=== PATIENT | female | born 1950 | race African-American/Black ===

== ENCOUNTER 2018-06-26 12:34 | Observation (INO) | payer OTHER ==
[~2018-06-26] VITALS: Ht 170.2 cm; Wt 60.1 kg
[2018-06-26 14:39] LABS: BASOPHIL (%) 0.5 % (0-1); BASOPHIL COUNT 0.1 K/uL (0-0.1); EOSINOPHIL (%) 1.7 % (0-5); EOSINOPHIL COUNT 0.2 K/uL (0-0.3); HEMATOCRIT 33.5 % (36.0-46.0); HEMOGLOBIN 10.9 G/DL (11.9-15.5); IMMATURE GRANULOCYTE (%) 0.7 % (0.0-0.7); LYMPHOCYTE (%) 22.7 % (15-42); MCH 30.4 PG (29.0-34.0); MCHC 32.5 G/DL (30.0-36.0); MCV 93.3 FL (83-99); MONOCYTE (%) 13.1 % (3-12); MONOCYTE COUNT 1.7 K/uL (0-0.8); NEUTROPHIL (%) 61.3 % (45-76); PLATELET COUNT 327 K/uL (156-360); RBC DIS.WIDTH-CV 15.7 % (11.8-14.6); RBC DIS.WIDTH-SD 53.4 % (39-53); RED BLOOD COUNT 3.59 M/uL (3.80-5.20); WHITE BLOOD COUNT 13.1 K/uL (4.1-10.2)
[2018-06-26 14:54] LABS: CHLORIDE 95 mEq/L (99-109); POTASSIUM 4.3 mEq/L (3.7-5.4); SODIUM 139 mEq/L (136-147)
[2018-06-26 14:56] LABS: GLUCOSE 121 mg/dL (70-99)
[2018-06-26 15:00] LABS: CREATININE 9.3 mg/dL (0.6-1.3)
[2018-06-26 15:01] LABS: UREA NITROGEN (BUN) 36 mg/dL (9-23)
[2018-06-26 15:03] LABS: TROP-I INTERPRETATION NEGATIVE; TROPONIN-I 0.02 ng/mL (0.0-0.30)
[2018-06-26 15:05] LABS: GFR ESTIMATE (CALCULATED) 4 mL/min/
[2018-06-26] MEDS ORDERED: DESYREL100 MG PO (18:52)
[2018-06-26] MEDS ORDERED: ATAZANAVIR SUL300 MG PO (18:54)
[2018-06-26] MEDS ORDERED: FERRIC CITRATE210 MG PO ×2 (18:54)
[2018-06-26] MEDS ORDERED: RENA-VITE RX T1 EACH PO (18:54)
[2018-06-26] MEDS ORDERED: ADULT ASPIRIN81 MG PO (18:55)
[2018-06-26] MEDS ORDERED: PLAVIX75 MG PO (18:55)
[2018-06-26] MEDS ORDERED: NORVASC5 MG PO (18:55)
[2018-06-26] MEDS ORDERED: HYDROCODON-ACE1 EAC9 PO (18:55)
[2018-06-26] MEDS ORDERED: NEURONTIN100 MG PO (18:55)
[2018-06-26 20:30] VITALS: BP 131/82
[2018-06-26 23:10] LABS: ALBUMIN 3.4 g/dL (3.2-4.8)
[2018-06-26 23:12] LABS: TOTAL PROTEIN 8.5 g/dL (6.4-8.3)
[2018-06-26 23:14] LABS: TOTAL BILIRUBIN 0.4 mg/dL (0.0-1.0)
[2018-06-26 23:15] LABS: ALKALINE PHOSPHATASE 73 IU/L (3-129)
[2018-06-26 23:18] LABS: AST (GOT) 18 IU/L (2-34); DIRECT BILIRUBIN 0.2 mg/dL (0.0-0.3)
[2018-06-26 23:23] LABS: ALT (GPT) < 1 IU/L (3-49)
[2018-06-27 00:36] VITALS: BP 110/64
[2018-06-27 04:06] VITALS: BP 110/69
[2018-06-27 05:24] LABS: HEMATOCRIT 30.6 % (36.0-46.0); MCH 30.6 PG (29.0-34.0); MCHC 32.7 G/DL (30.0-36.0); MCV 93.6 FL (83-99); PLATELET COUNT 305 K/uL (156-360); RBC DIS.WIDTH-CV 15.7 % (11.8-14.6); RBC DIS.WIDTH-SD 53.3 % (39-53); RED BLOOD COUNT 3.27 M/uL (3.80-5.20); WHITE BLOOD COUNT 10.8 K/uL (4.1-10.2)
[2018-06-27 05:47] LABS: CHLORIDE 95 MEQ/L (99-109); CREATININE 10.6 MG/DL (0.6-1.3); GFR ESTIMATE (CALCULATED) 5 mL/min/; POTASSIUM 4.6 MEQ/L (3.7-5.4); SODIUM 137 MEQ/L (136-147); UREA NITROGEN (BUN) 48 mg/dL (9-23)
[2018-06-27 05:54] LABS: GLUCOSE 82 mg/dL (70-99)
[2018-06-27 07:20] VITALS: BP 116/70
[2018-06-27 11:08] VITALS: BP 100/58
[2018-06-27 12:54] LABS: HEPATITIS B SURFACE ANTIGEN Nonreactive
[2018-06-27 13:07] LABS: HEPATITIS B SURFACE ANTIBODY REACTIVE; HEPATITIS C ANTIBODY REACTIVE
[2018-06-27 13:25] LABS: ANTI-HEPATITIS B CORE (TOTAL) REACTIVE
[2018-06-27 14:02] LABS: ANTI-HEPATITIS B CORE (IGM) Nonreactive
[2018-06-27 20:04] VITALS: BP 90/65
[2018-06-27 23:34] VITALS: BP 92/52
[2018-06-28 03:41] VITALS: BP 102/68
[2018-06-28 08:07] VITALS: BP 86/59
[2018-06-28 10:44] VITALS: BP 90/52; BP 90/59
[2018-06-28 11:51] VITALS: BP 106/65
[2018-06-28 14:00] LABS: BASOPHIL (%) 0.3 % (0-1); EOSINOPHIL (%) 2.7 % (0-5); EOSINOPHIL COUNT 0.2 K/uL (0-0.3); HEMATOCRIT 30.1 % (36.0-46.0); HEMOGLOBIN 9.8 G/DL (11.9-15.5); IMMATURE GRANULOCYTE (%) 0.8 % (0.0-0.7); LYMPHOCYTE (%) 29.7 % (15-42); LYMPHOCYTE COUNT 2.6 K/uL (1.0-2.8); MCH 30.6 PG (29.0-34.0); MCHC 32.6 G/DL (30.0-36.0); MCV 94.1 FL (83-99); MONOCYTE (%) 14.6 % (3-12); MONOCYTE COUNT 1.3 K/uL (0-0.8); NEUTROPHIL (%) 51.9 % (45-76); NEUTROPHIL COUNT 4.5 K/uL (1.8-6.4); PLATELET COUNT 283 K/uL (156-360); RBC DIS.WIDTH-CV 15.5 % (11.8-14.6); RBC DIS.WIDTH-SD 53.4 % (39-53); WHITE BLOOD COUNT 8.8 K/uL (4.1-10.2)
[2018-06-28 14:35] LABS: CHLORIDE 108 mEq/L (99-109); POTASSIUM 3.5 mEq/L (3.7-5.4); SODIUM 140 mEq/L (136-147)
[2018-06-28 14:37] LABS: GLUCOSE 98 mg/dL (70-99)
[2018-06-28 14:41] LABS: GFR ESTIMATE (CALCULATED) 9 mL/min/; UREA NITROGEN (BUN) 32 mg/dL (9-23)
[2018-06-28 14:46] LABS: CREATININE 6.1 mg/dL (0.6-1.3)
[2018-07-02 09:07] LABS: HCV RNA (LOG IU/mL) 6.16 (())
[2018-07-02 20:13] LABS: CD4/CD8 Ratio 1.21 (0.86-5.00)
== END 2018-06-28 17:34 | disposition home or self-care (01) ==
LOC: EME 12:34 → EDOF 18:18 → 4SOUTH 18:18 → EDOF 18:18 → 4SOUTH 20:05
PROVIDERS: Emergency Medicine; Hospitalist; Internal Medicine Infectious Disease; Internal Medicine Nephrology
PROC: 5A1D70Z Performance of Urinary Filtration, Intermittent, Less than 6 Hours Per Day (ICD-10-PCS; principal; 2018-06-27)
DX: I13.0 Hypertensive heart and chronic kidney disease with heart failure and stage 1 through stage 4 chronic kidney disease, or unspecified chronic kidney disease (principal); N18.6 End stage renal disease; I50.9 Heart failure, unspecified; Z99.2 Dependence on renal dialysis; Z21 Asymptomatic human immunodeficiency virus [HIV] infection status; B18.2 Chronic viral hepatitis C; D63.1 Anemia in chronic kidney disease; R22.32 Localized swelling, mass and lump, left upper limb; J44.9 Chronic obstructive pulmonary disease, unspecified; G89.29 Other chronic pain; F19.11 Other psychoactive substance abuse, in remission; Z90.710 Acquired absence of both cervix and uterus; F17.210 Nicotine dependence, cigarettes, uncomplicated; Z82.49 Family history of ischemic heart disease and other diseases of the circulatory system; F10.21 Alcohol dependence, in remission; I73.9 Peripheral vascular disease, unspecified; Z95.820 Peripheral vascular angioplasty status with implants and grafts; Z79.02 Long term (current) use of antithrombotics/antiplatelets; Z79.82 Long term (current) use of aspirin; Z86.19 Personal history of other infectious and parasitic diseases; Z91.19 Patient's noncompliance with other medical treatment and regimen
CPT/HCPCS: 71046; 80048; 80076; 81003; 81381 90; 84484; 85025; 85027; 86355 90; 86359 90; 86360 90; 86704; 86705; 86706; 86803; 87040; 87340; 87522 90; 87536; 87900 90; 87901 90; 99281; 99285; G0257; G0378; J1644

== ENCOUNTER 2018-07-05 07:36 | Day surgery (SDC) | payer OTHER ==
[~2018-07-05 07:36] MED LIST: ADULT ASPIRIN81 MG PO; ATAZANAVIR SUL300 MG PO; DESYREL100 MG PO; FERRIC CITRATE210 MG PO; HYDROCODON-ACE1 EAC9 PO; NEURONTIN100 MG PO; NORVASC5 MG PO; PLAVIX75 MG PO; RENA-VITE RX T1 EACH PO
== END 2018-07-05 11:05 | disposition home or self-care (01) ==
LOC: CATH 07:36
PROC: 03783ZZ Dilation of Left Brachial Artery, Percutaneous Approach (ICD-10-PCS; principal; 2018-07-05)
PROC: B51W1ZZ Fluoroscopy of Dialysis Shunt/Fistula using Low Osmolar Contrast (ICD-10-PCS; principal; 2018-07-05)
PROC: 057Y3ZZ Dilation of Upper Vein, Percutaneous Approach (ICD-10-PCS; principal; 2018-07-05)
DX: T82.858A Stenosis of other vascular prosthetic devices, implants and grafts, initial encounter (principal); F17.200 Nicotine dependence, unspecified, uncomplicated; I12.0 Hypertensive chronic kidney disease with stage 5 chronic kidney disease or end stage renal disease; N18.6 End stage renal disease; Z99.2 Dependence on renal dialysis; D63.1 Anemia in chronic kidney disease; J44.9 Chronic obstructive pulmonary disease, unspecified; B20 Human immunodeficiency virus [HIV] disease; B19.10 Unspecified viral hepatitis B without hepatic coma; B19.20 Unspecified viral hepatitis C without hepatic coma; E78.5 Hyperlipidemia, unspecified; I25.10 Atherosclerotic heart disease of native coronary artery without angina pectoris; Z90.710 Acquired absence of both cervix and uterus; Z82.49 Family history of ischemic heart disease and other diseases of the circulatory system; Z84.1 Family history of disorders of kidney and ureter; Z83.3 Family history of diabetes mellitus; Z80.49 Family history of malignant neoplasm of other genital organs; Z79.82 Long term (current) use of aspirin; Z79.01 Long term (current) use of anticoagulants; Z79.02 Long term (current) use of antithrombotics/antiplatelets; Y83.2 Surgical operation with anastomosis, bypass or graft as the cause of abnormal reaction of the patient, or of later complication, without mention of misadventure at the time of the procedure
CPT/HCPCS: 87641; C1725; C1769; C1894; J1644; J2250; J3010; S0020

== ENCOUNTER 2018-07-13 19:57 | Emergency (ER) | payer OTHER ==
[~2018-07-13] VITALS: Ht 170.2 cm; Wt 62.2 kg
[2018-07-13 20:48] LABS: BASOPHIL (%) 0.3 % (0-1); EOSINOPHIL (%) 2.5 % (0-5); EOSINOPHIL COUNT 0.4 K/uL (0-0.3); HEMATOCRIT 32.6 % (36.0-46.0); HEMOGLOBIN 11.1 G/DL (11.9-15.5); IMMATURE GRANULOCYTE (%) 1.1 % (0.0-0.7); LYMPHOCYTE (%) 28.7 % (15-42); MCH 31.2 PG (29.0-34.0); MCV 91.6 FL (83-99); MONOCYTE (%) 9.4 % (3-12); MONOCYTE COUNT 1.3 K/uL (0-0.8); PLATELET COUNT 290 K/uL (156-360); RBC DIS.WIDTH-CV 14.8 % (11.8-14.6); RBC DIS.WIDTH-SD 49.9 % (39-53); RED BLOOD COUNT 3.56 M/uL (3.80-5.20); WHITE BLOOD COUNT 13.9 K/uL (4.1-10.2)
[2018-07-13 20:54] LABS: INTER. NORMALIZED RATIO 1.1
[2018-07-13 20:57] LABS: PTT 31.8 SEC (25-37)
[2018-07-13 21:12] LABS: CHLORIDE 93 mEq/L (99-109); POTASSIUM 3.6 mEq/L (3.7-5.4); SODIUM 134 mEq/L (136-147)
[2018-07-13 21:14] LABS: GLUCOSE 120 mg/dL (70-99)
[2018-07-13 21:18] LABS: CREATININE 4.1 mg/dL (0.6-1.3); GFR ESTIMATE (CALCULATED) 14 mL/min/
[2018-07-13 21:19] LABS: UREA NITROGEN (BUN) 22 mg/dL (9-23)
[2018-07-14] MEDS ORDERED: NORCO 5/3251 TABLET PO (01:40)
[2018-07-14 02:07] VITALS: BP 106/66
== END 2018-07-14 02:07 | disposition home or self-care (01) ==
LOC: EME 19:57
PROVIDERS: Nurse Practitioner Family
DX: I70.202 Unspecified atherosclerosis of native arteries of extremities, left leg (principal); N18.6 End stage renal disease; I12.0 Hypertensive chronic kidney disease with stage 5 chronic kidney disease or end stage renal disease; Z99.2 Dependence on renal dialysis; M79.675 Pain in left toe(s); M79.605 Pain in left leg; Z21 Asymptomatic human immunodeficiency virus [HIV] infection status; Z79.02 Long term (current) use of antithrombotics/antiplatelets; Z79.82 Long term (current) use of aspirin; F17.200 Nicotine dependence, unspecified, uncomplicated
CPT/HCPCS: 73630; 80048; 85025; 85610; 85730; 93926; 99281; 99284